=== PATIENT | female | born 1945 | race Caucasian/White ===

== ENCOUNTER → 2023-04-07 11:12 | Outpatient (REF) | payer OTHER, SELFPAY ==
[2023-04-07 12:06] LABS: % Basophils 0.7 % (0-2); % Eosinophils 2.1 % (0-6); % Immature Granulocytes 0.3 % (0-0.5); % Lymphocytes 53.8 % (20.5-51.1); % Monocytes 7.9 % (1.7-9.3); % Neutrophils 35.2 % (42.2-75.2); Absolute Eosinophils 0.1 10^3/uL (0-0.7); Absolute Lymphocytes 3.3 10^3/uL (1.2-3.4); Absolute Monocytes 0.5 10^3/uL (0.1-0.6); Absolute Neutrophils 2.1 10^3/uL (1.4-6.5); Hemoglobin 13.1 g/dL (12.0-16.0); Mean Corp Hgb Conc. 34.5 g/dL (33.0-37.0); Mean Corpuscular Hgb 31.5 pg (27.0-31.0); Mean Corpuscular Volume 91.3 fL (81.0-99.0); Mean Platelet Volume 9.5 fL (7.4-10.4); Nucleated Red Blood Cells % 0 %; Platelet Count 290 10^3/uL (130-400); Red Blood Cell Count 4.16 10^6/uL (4.20-5.40); Red Cell Dist. Width 12.6 % (11.5-14.5); White Blood Cell Count 6.1 10^3/uL (4.8-10.8)
[2023-04-07 12:24] LABS: Blood Urea Nitrogen 14 mg/dl (7-17); Calcium 9.7 mg/dl (8.4-10.2); Carbon Dioxide 29 mmol/L (22-30); Chloride 101 mmol/L (98-107); Glucose 96 mg/dl (70-99); Potassium 5.5 mmol/L (3.5-5.1); Sodium 137 mmol/L (135-145); eGFR > 60.00
== END ==
LOC: RCS 11:12
PROVIDERS: ATTENDING PHYSICIAN Specialist; FAMILY PHYSICIAN Family Medicine
DX: Z01.818 Encounter for other preprocedural examination (principal)
CPT/HCPCS: 36415; 80048; 85025; 93005

== ENCOUNTER 2023-08-24 12:08 | Emergency (ER) | payer OTHER, SELFPAY ==
[2023-08-24 12:10] VITALS: BP 146/66
[2023-08-24 12:28] VITALS: BMI 26.5
--- NOTE | 2023-08-24 12:40 | ED.GENMED ---
History of Present Illness
General
Chief Complaint: Bowel Problem
Source: patient
Exam Limitations: none
Time Seen by Provider: 08/24/23 12:29
History of Present Illness
History of Present Illness:
See MDM
Past History
Past History
ED Past Medical History: GERD, HTN and Hypercholesterolemia
ED Past Surgical History: Gynecological and Orthopedic
Social History
Tobacco: Former smoker
Personal:
Living: with family
Employment: Employed
Phy Exam
Physical Exam
Physical Exam:
See MDM
Course
Orders/Labs/Results
Orders:
Orders
08/24/23 12:40
Abdomen Xray - 1 View [CR Abdomen - 1 View] Urgent
Comment:
Reason For Exam: constipated, abd bloating
08/24/23 13:16
Enema- Treatment ONCE
Type: Milk of Molasses
08/24/23 14:35
Magnesium Citrate [Citroma] 300 ml PO ONCE ONE
Vital Signs
Initial and Last Documented VS:
Initial Vital Signs
Temp Pulse Resp BP Pulse Ox
98.2 F 99 16 146/66 100
08/24/23 12:10 08/24/23 12:10 08/24/23 12:10 08/24/23 12:10 08/24/23 12:10
Last Documented Vital Signs
Temp Pulse Resp BP Pulse Ox
98.2 F 99 16 146/66 100
08/24/23 12:10 08/24/23 12:10 08/24/23 12:10 08/24/23 12:10 08/24/23 12:10
MDM/Problems Addressed
Differential Diagnosis Includes:
HPI and MDM Narrative:
78-year-old female presenting with constipation for the past 4 to 5 days. Patient denies any change in her food or fluid intake. She denies any change in medications. She has been trying multiple remedies at home which include stool softeners,
laxatives, suppositories and enema with minimal to no relief. She is complaining of intermittent abdominal bloating now but denies any significant pain
Abdomen is soft and nontender. I question her dry mucous membranes but she states they are always that dry. Rectal exam was performed with nurse timber trimmer Stefany at bedside. No stool palpated in the rectal vault. Will obtain x-ray to assess
where regarding the stool is to decide whether or not she would benefit from an enema
Physical exam
General: Well appearing and non-toxic
HEENT: protecting airway
Neck: appears supple
CV: No evidence of cyanosis
Resp: No accessory muscle use
Abd: Non-distended. Soft and nontender
Rectal: No stool in the rectal vault constipation
Extremities: No deformities
Neuro: alert
Psych: Normal affect
Skin: Intact
Problems Addressed including Acute and Chronic Conditions affecting care:
1. Constipation
Acuity: acute
Prognosis: stable
Details: Will obtain x-ray to assess location of stool burden to decide whether or not she would benefit enema. Given the soft and nontender abdomen, doubt stercoral colitis or general colitis. No nausea or vomiting to suggest small bowel
obstruction. She still is passing gas
Updates
X-ray consistent with constipation. Patient given milk of molasses enema with some passage of stool. Discussed magnesium citrate taking Senokot tonight
Differential Diagnosis (but not limited to): Constipation, dehydration
Testing considered: Blood work
Drug therapy (if applicable): OTC meds, please see d/c instruction regarding Rx drugs
Amount and/or Complexity of Data Reviewed
Clinical info obtained from: Patient
External data reviewed: N/A
Labs I independently reviewed (but not limited to): N/A
Radiology: X-ray independently reviewed: Large amount of stool noted in descending colon
Pulse Ox: not hypoxic
EKG independently reviewed: N/A
Inspector Plating: N/A
Critical Care: N/A
Risk of Complication:
Social Determinants of health: Good social support
Discussed with other providers: N/A
Escalation of Care includes Admit/Obs: After being observed in the Emergency Department, pt stable for discharge.
Occasional wrong word or 'sound a like' substitutions may have occurred due to the inherent limitations of voice recognition software. Read the chart carefully and recognize, using context, where substitutions have occurred.
*Critical Care Note
Total Time (30-74mins, 75-104mins- exclusive of procedures): Not Applicable
ED Attending Note
-
Portions of this chart may have been created with voice recognition software.� Occasional wrong word or��sound alike� substitutions may have occurred due to the inherent limitations of voice recognition software.
Discharge Plan
Departure
Patient Disposition: Home (Routine Discharge)
Date of Disposition: 08/24/23
Time of Disposition: 14:36
Patient with high blood pressure during this ER visit?: Yes
Discharge Problem:
Constipation
Instructions: Constipation, Adult (DC), BLOOD PRESSURE
Prescriptions:
No Action
lisinopril 20 MG tablet
20 mg PO DAILY
simvastatin 40 MG tablet
40 mg PO DAILY
omeprazole 20 MG capsule,delayed release(DR/EC)
20 mg PO DAILY
doxycycline hyclate 100 MG capsule
100 mg PO Q12 Qty: 19 0RF
Referrals:
Eric Burgos MD [Family Provider] -
Activity Restrictions/Additional Instructions:
Please return for any worsening symptoms.
You may return at any time if you have further concerns.
Please follow up with your doctor at the first available appointment, preferably this week.
Please take Senokot tonight. You can take the magnesium citrate tomorrow. In addition, please continue take a stool softener. If symptoms are still not improving, please talk to your doctor about possibly prescribing lactulose.
Thank you for choosing [facility].
Interventions
Interventions:
*Risk Screen - Suicide Last Done: 08/24/23 12:28
*General Assessment Last Done: 08/24/23 12:28
*Neglect/Abuse Screening Last Done: 08/24/23 12:28
*ED COVID-19 Vaccine History Last Done: 08/24/23 12:28
[facility] Assessment Last Done: 08/24/23 12:28
Discharge Date and Time
Print Language: SINHALA
[2023-08-24] MEDS: CITROMA 300 ML PO (14:44)
[2023-08-24 14:45] VITALS: BP 132/60
== END 2023-08-24 14:46 | disposition home or self-care (01) ==
LOC: EMR 12:08
PROVIDERS: EMERGENCY PHYSICIAN Student in an Organized Health Care Education/Training Program; FAMILY PHYSICIAN Family Medicine
DX: K59.00 Constipation, unspecified (principal); I10 Essential (primary) hypertension
CPT/HCPCS: 99283; 74018

== ENCOUNTER → 2023-12-21 12:40 | Outpatient (REF) | payer OTHER, SELFPAY | LOC: EMG 12:40 | PROVIDERS: ATTENDING PHYSICIAN Orthopaedic Surgery; FAMILY PHYSICIAN Family Medicine | DX: R20.0 Anesthesia of skin (principal) | CPT/HCPCS: 95886; 95909 ==